=== PATIENT | female | born 1955 | race Caucasian/White ===

== ENCOUNTER 2018-12-13 14:20 | Emergency (ER) | payer BC ==
[2018-12-13] MEDS: Ondansetron 4 MG Tab.DIS PO ONE (16:45)
--- NOTE | 2018-12-13 16:58 | EDM.PDOC ---
ED HPI GENERAL MEDICAL PROBLEM - General Chief Complaint: Gastrointestinal Problem Stated Complaint: DIZZY Time Seen by Provider: 12/13/18 15:30 Source of Information: Reports: Patient History Limitations: Reports: No Limitations - History of Present Illness INITIAL COMMENTS - FREE TEXT/NARRATIVE: patient presents today with concern for abdominal pain, vomiting and feeling lightheaded after lunch today. She reports that she had some maybe old leftover pizza and approximately 10-30 minutes afterwards suddenly felt flushed all over , lightheaded and hot. She felt like she might pass out, and has never had anything like this happen before. She works in the hospital in registration, and came over to be evaluated as she wasn't sure what was going on. Shortly after arrival to the department she vomited, and has subsequently vomited one more time. She reports her abdomen still hurts a little bit. she does not note any chest pain, shortness of breath, no sweating or pressure feeling in her chest. She has not had any diarrhea, and was otherwise feeling well prior to her lunch today. She's never had food poisoning before, and does not have any other recent exposures, new foods, travel which could have contributed to her presentation. - Related Data Allergies Allergy/AdvReac Type Severity Reaction Status Date / Time No Known Allergies Allergy Verified 12/13/18 15:05 Home Meds: Home Meds Acetaminophen [Tylenol] 650 mg PO ACBED PRN 05/11/14 [History] Anastrozole [Arimidex] 1 mg PO DAILY 05/11/14 [History] Aspirin [Celestina Chewable] 81 mg PO DAILY 05/11/14 [History] Calcium Carbonate/Vitamin D3 [Calcium 600 + Vit D3 Tablet] 1 tab PO DAILY [History] Cholecalciferol (Vitamin D3) [Vitamin D] 2,000 unit PO DAILY 05/11/14 [History] Fish Oil/[place]ham-3 Fatty Acids [Fish Oil 1,000 MG] 1,000 mg PO DAILY 05/11/14 [ History] Lisinopril/Hydrochlorothiazide [Zestoretic 10-12.5 MG] 1 tab PO DAILY 05/11/14 [ History] Multivitamin with Minerals [Multiple Vitamin] 1 tab PO DAILY 05/11/14 [History] Naproxen Sodium [Aleve] 220 mg PO TID PRN 05/11/14 [History] Omeprazole [Prilosec] 20 mg PO DAILY 05/11/14 [History] Past Medical History HEENT History: Reports: Impaired Vision Cardiovascular History: Reports: Hypertension [employer] [facility] History: Reports: Social & Family History - Family History Family Medical History: Noncontributory - Tobacco Use Smoking Status *Q: Never Smoker - Caffeine Use Caffeine Use: Reports: Coffee, Tea - Recreational Drug Use Recreational Drug Use: No ED ROS GENERAL - Review of Systems Review Of Systems: ROS reveals no pertinent complaints other than HPI. (10 point review of systems completed and is completely negative except as noted in history of present illness) ED EXAM, GENERAL - Physical Exam Exam: See Below Free Text/Narrative:: Gen.: Alert, pleasant in minimal distress. Throat is without erythema, mucous members are moist and there is no tonsillar enlargement or exudates Neck: There is no cervical adenopathy. Heart is regular rate and rhythm or murmur. Lungs are clear throughout no wheezes or crackles. Abdomen positive bowel sounds, soft nondistended with minimal epigastric tenderness, no rebound or guarding. Peripheral pulses +2 in both the upper and lower extremities and equal bilaterally. Neuro: She has a normal gait and is moving her arms and legs normally. Course - Vital Signs Text/Narrative:: by history, most likely to be acute food poisoning, less likely possible early viral gastroenteritis. Patient reports feeling significantly better after she vomited the first time, now just a little bit queasy. She has never had food poisoning before. Unlikely to be a cardiovascular event given the etiology and no ongoing symptoms, completely normal vital signs and no history of any cardiac events. patient offered antinausea medicine and to try some by mouth fluids and declined at this time Last Recorded V/S: Last Vital Signs Temp 36.6 C 12/13/18 17:31 Pulse 86 12/13/18 17:31 Resp 17 12/13/18 17:31 BP 116/73 12/13/18 17:31 Pulse Ox 100 12/13/18 17:31 - Orders/Labs/Meds Meds: Medications Discontinued Medications Generic Name Dose Route Start Last Admin Trade Name Freq PRN Reason Stop Dose Admin Ondansetron HCl 4 mg 12/13/18 16:39 12/13/18 16:45 Zofran Odt PO 12/13/18 16:40 4 mg ONETIME ONE Administration - Re-Assessments/Exams Free Text/Narrative Re-Assessment/Exam: 12/13/18 recheck: Patient sleeping comfortably Free Text/Narrative Re-Assessment/Exam: 12/13/18 recheck: Patient just awakened from a nap, agreeable to trying some Zofran and ice water Free Text/Narrative Re-Assessment/Exam: 12/13/18 patient feeling much improved after the Zofran. Discussed possibility of note that her be off work tomorrow, also clear liquid or prostate night. Discussed signs or symptoms which are probably need for reevaluation, particularly any new dyspnea on exertion, cough, ongoing chest pain or nausea but is continuing to worsen especially associated with diaphoresis or sweating. remains hemodynamically stable and normal on monitor, no signs of cardiac event this time. She was in agreement with this plan and had no further questions Departure - Departure Time of Disposition: 16:57 Disposition: Home, Self-Care 01 Condition: Good Clinical Impression: Food poisoning Qualifiers: Encounter type: initial encounter Injury intent: accidental or unintentional Qualified Code(s): T62.91XA - Toxic effect of unspecified noxious substance eaten as food, accidental (unintentional), initial encounter - Discharge Information *PRESCRIPTION DRUG MONITORING PROGRAM REVIEWED*: Not Applicable *COPY OF PRESCRIPTION DRUG MONITORING REPORT IN PATIENT OSIEL: Not Applicable Instructions: Food Poisoning and Marine Toxins Referrals: Luisa Javier NP [Primary Care Provider] - Forms: ED Department Discharge Additional Instructions: recommend BRAT diet tonight, or just clear liquids zofran given here should last several hours. If nausea returns, could try sprite, tramaine vern (mitra with real tramiane), 7-up or whatever you have at home note provided for work in case still feeling rough tomorrow some loose stools likely - should resolve in 1-2 days max. If bloody, severe abdominal cramping, fever, or ongoing vomiting, get rechecked also recheck if chest pain, mitra if associated with sweating, nausea, pain in left arm or jaw
[2018-12-13 17:33] VITALS: BP 116/73
== END 2018-12-13 17:31 | disposition home or self-care (01) ==
LOC: FB.ED 14:20
DX: T62.91XA Toxic effect of unspecified noxious substance eaten as food, accidental (unintentional), initial encounter (principal); I10 Essential (primary) hypertension; Z79.82 Long term (current) use of aspirin; Z79.899 Other long term (current) drug therapy
CPT/HCPCS: 99283; A9270

== ENCOUNTER → 2022-07-16 | Day surgery (SDC) | payer BC ==
[~2022-07-16] MED LIST: Lactated Ringers 1,000 ML IV SCH; Lidocaine 2% 100 MG/5 ML Syringe IVPUSH ONE; Propofol 200 MG/20 ML SDV IV ONE; Sodium Chloride 0.9% 10 ML Syringe FLUSH PRN
[2022-07-16 09:36] VITALS: BP 127/70; PULSE 66
== END ==
LOC: FB.SDS 06:59
PROVIDERS: ATTEND Surgery
DX: Z12.11 Encounter for screening for malignant neoplasm of colon (principal); K63.5 Polyp of colon; K57.30 Diverticulosis of large intestine without perforation or abscess without bleeding; I10 Essential (primary) hypertension; K21.9 Gastro-esophageal reflux disease without esophagitis; Z98.890 Other specified postprocedural states; Z79.899 Other long term (current) drug therapy; Z79.82 Long term (current) use of aspirin; Z91.018 Allergy to other foods
CPT/HCPCS: 00812; 45384; 88305; J2704; J7120